=== PATIENT | male | born 1980 | race Two or more races ===

== ENCOUNTER 2021-03-23 04:51 | Inpatient (IN) | payer MEDICAID ==
[~2021-03-23] VITALS: Ht 160 cm; Wt 75.0 kg
[2021-03-23] MEDS ORDERED: LORazepam 2 mg/ml vial IM ONE ×2 (04:55→05:35)
[2021-03-23] MEDS ORDERED: morphine 4 MG/ML inj SYRINge IM ONE (04:55)
[2021-03-23] MEDS ORDERED: fentaNYL/PF 50MCG/1 ML 2ML syringe IM ONE (05:35)
--- NOTE | 2021-03-23 06:38 | NUR ---
patient received on bed-trendelenberg, per Dr. May-ok to supine patient since no hernia.Patient able to arouse with sternum rub,vital signs stable,we will monitor.
--- NOTE | 2021-03-23 06:38 | NUR ---
Patient difficuly to arouse,able to arouse using a sternum rub.Dr. Puga made aware.
[2021-03-23] MEDS ORDERED: bisacodyl 10mg suppository rectal RC PRN (07:15)
[2021-03-23] MEDS ORDERED: potassium Cl 20 mEq SR tablet PO PRN ×2 (07:15)
[2021-03-23] MEDS ORDERED: ondansetron/PF 4mg/2ml inj IV PRN (07:15)
[2021-03-23] MEDS ORDERED: magnesium 4gm in 100ml NS 100 ML IV PRN (07:15)
[2021-03-23] MEDS ORDERED: magnesium Cl slow-release 64mg tablet PO PRN (07:15)
[2021-03-23] MEDS ORDERED: acetaminophen 325mg tablet PO PRN ×2 (07:15)
[2021-03-23] MEDS ORDERED: potassium CL 10mEq/100ml bag 100 ML IV PRN (07:15)
[2021-03-23] MEDS ORDERED: HYDROcodone/acetaminophen 5mg/325mg tablet PO PRN (07:15)
[2021-03-23] MEDS ORDERED: morphine 2 MG/ML inj. syringe IV PRN ×2 (07:15)
[2021-03-23] MEDS ORDERED: acetaminophen 650mg rectal suppository RC PRN (07:15)
[2021-03-23] MEDS ORDERED: magnesium hydroxide 30ml (MOM) UD suspension PO PRN (07:15)
[2021-03-23] MEDS ORDERED: mag hydrox/Alum hydrox/simeth 30ml oral suspension PO PRN (07:15)
[2021-03-23] MEDS ORDERED: magnesium 2GM in 50ml NS 50 ML IV PRN (07:15)
--- NOTE | 2021-03-23 07:31 | NUR ---
Dr. Hurtado at [facility] [place], patient unable to consent since patient hard to arouse, unable to consent sx.
[2021-03-23] MEDS ORDERED: naloxone 2mg/2ml inj IV STA (07:35)
--- NOTE | 2021-03-23 07:37 | NUR ---
Dr. Puga at bedside, ordered narcan 0.5mg IV stat.
[2021-03-23 07:44] LABS: BASOPHILS % (AUTO) 0.3 % (0-1); EOSINOPHILS # (AUTO) 0.1 X10'3 (0-0.9); EOSINOPHILS % (AUTO) 1.4 % (0-6); HEMATOCRIT 42.5 % (42.0-52.0); HEMOGLOBIN 14.8 g/dl (14.0-17.9); LYMPHOCYTES % (AUTO) 13.5 % (21-51); MEAN CORPUSCULAR HEMOGLOBIN 31.5 PG (27.0-31.0); MEAN CORPUSCULAR HGB CONC 34.8 g/dL (33.0-36.5); MEAN CORPUSCULAR VOLUME 90.3 FL (78-98); MEAN PLATELET VOLUME 7.1 FL (7.4-10.4); MONOCYTES # (AUTO) 0.5 X10'3 (0-0.9); MONOCYTES % (AUTO) 6.6 % (2-12); NEUTROPHILS # (AUTO) 5.6 X10'3 (1.8-7.7); NEUTROPHILS % (AUTO) 78.2 % (42-75); PLATELET COUNT 264 X10'3 (140-440); RED BLOOD COUNT 4.71 X10'6 (4.70-6.10); RED CELL DISTRIBUTION WIDTH 13.2 % (11.5-14.5); WHITE BLOOD COUNT 7.2 X10'3 (4.5-11.0)
[2021-03-23] MEDS: normal saline 1000ml 1,000 ML IV SCH ×3 (07:49→20:56)
[2021-03-23 07:54] LABS: APTT 31 SECONDS (22-32)
--- NOTE | 2021-03-23 07:57 | NUR ---
no change from narcan 0.5mg,Dr. Puga aware.
[2021-03-23] MEDS: K and/or MAG REPLACEMENT MC SCH ×2 (08:00→20:00)
[2021-03-23] MEDS: docusate sod 100mg capsule PO SCH ×2 (08:00→20:53)
[2021-03-23 08:04] LABS: ALBUMIN 3.6 G/DL (3.4-5.0); ANION GAP 8 (8-16); BLOOD UREA NITROGEN 17 MG/DL (7-18); BUN/CREATININE RATIO 20.7 (5.4-32.0); CHLORIDE 105 MMOL/L (99-107); CREATININE 0.82 MG/DL (0.60-1.10); GLUCOSE 117 MG/DL (70-104); POTASSIUM 3.9 MMOL/L (3.5-5.1); SODIUM 138 MMOL/L (135-145); eGFR > 90 ML/MIN
[2021-03-23 08:28] LABS: HEMOGLOBIN A1C 5.6 % (4.5-6.2)
[2021-03-23] MEDS ORDERED: NO HOME MEDS (11:03)
[2021-03-23 15:07] LABS: URINE AMPHETAMINE SCREEN POSITIVE (Neg); URINE BARBITUATE SCREEN NEGATIVE (Neg); URINE BENZODIAZEPINES SCREEN NEGATIVE (Neg); URINE CANNABINOID SCREEN NEGATIVE (Neg); URINE COCAINE SCREEN NEGATIVE (Neg); URINE METHADONE SCREEN NEGATIVE (Neg); URINE OPIATE SCREEN POSITIVE (Neg); URINE PHENCYCLIDINE SCREEN NEGATIVE (Neg)
[2021-03-23 18:19] LABS: CLARITY,URINE CLEAR (Clear); COLOR,URINE YELLOW (Yellow); GLUCOSE, URINE NEGATIVE (Neg); KETONES,URINE NEGATIVE (Neg); LEUKOCYTE ESTERASE ,URINE NEGATIVE (Neg); NITRITES, URINE NEGATIVE (Neg); OCCULT BLOOD,URINE NEGATIVE (Neg); PROTEIN,URINE NEGATIVE (Neg); UROBILINOGEN,URINE 0.2 E.U/dL (0.2-1.0)
[2021-03-23 18:33] LABS: UA COLLECTION TYPE CLN CATCH MIDSTREAM
--- NOTE | 2021-03-23 18:45 | NUR ---
Received report from [employer]BERT Moncada. Patient to follow shortly.
--- NOTE | 2021-03-23 19:20 | NUR ---
Dr Cabrera rounding on patient. He called Dr Hurtado who stated that it was ok for patient to eat and then to be NPO at midnight.
[2021-03-23 19:30] VITALS: BP 115/86
[2021-03-23] MEDS: HYDROcodone/acetaminophen 10/325mg tab PO PRN (20:49)
[2021-03-23 23:30] VITALS: BP 133/84
[2021-03-24] MEDS: HYDROcodone/acetaminophen 10/325mg tab PO PRN (05:14)
[2021-03-24] MEDS: normal saline 1000ml 1,000 ML IV SCH (05:20)
[2021-03-24 06:30] LABS: BASOPHILS % (AUTO) 0.3 % (0-1); EOSINOPHILS # (AUTO) 0.1 X10'3 (0-0.9); EOSINOPHILS % (AUTO) 1.4 % (0-6); HEMATOCRIT 43.1 % (42.0-52.0); HEMOGLOBIN 14.6 g/dl (14.0-17.9); LYMPHOCYTES # (AUTO) 1.6 X10'3 (1.1-4.8); MEAN CORPUSCULAR HEMOGLOBIN 31.2 PG (27.0-31.0); MEAN CORPUSCULAR HGB CONC 33.8 g/dL (33.0-36.5); MEAN CORPUSCULAR VOLUME 92.2 FL (78-98); MEAN PLATELET VOLUME 7.6 FL (7.4-10.4); MONOCYTES # (AUTO) 0.5 X10'3 (0-0.9); MONOCYTES % (AUTO) 7.5 % (2-12); NEUTROPHILS # (AUTO) 4.8 X10'3 (1.8-7.7); NEUTROPHILS % (AUTO) 68.8 % (42-75); PLATELET COUNT 260 X10'3 (140-440); RED BLOOD COUNT 4.67 X10'6 (4.70-6.10); RED CELL DISTRIBUTION WIDTH 13.2 % (11.5-14.5)
--- NOTE | 2021-03-24 06:30 | NUR ---
Problems reprioritized. Patient report given, questions answered & plan of care reviewed with Shara GODINEZ.
[2021-03-24 07:32] LABS: ALANINE AMINOTRANSFERASE 30 U/L (12-78); ALBUMIN 3.2 G/DL (3.4-5.0); ALBUMIN/GLOBULIN RATIO 0.9 (1.1-1.5); ALKALINE PHOSPHATASE 55 IU/L (46-116); ANION GAP 9 (8-16); ASPARTATE AMINO TRANSFERASE 24 U/L (10-37); BILIRUBIN,TOTAL 0.4 MG/DL (0.1-1.0); BLOOD UREA NITROGEN 14 MG/DL (7-18); BUN/CREATININE RATIO 16.9 (5.4-32.0); CALCIUM 8.5 MG/DL (8.5-10.1); CHLORIDE 107 MMOL/L (99-107); CHOL/HDL RATIO 4.4 (0.00-4.99); CHOLESTEROL 161 MG/DL (0-200); CREATININE 0.83 MG/DL (0.60-1.10); GLUCOSE 89 MG/DL (70-104); HDL CHOLESTEROL 37 MG/DL (35-60); LDL CHOLESTEROL 105 MG/DL (50-100); PHOSPHORUS 3.3 MG/DL (2.3-4.5); POTASSIUM 4.1 MMOL/L (3.5-5.1); SODIUM 140 MMOL/L (135-145); TOTAL CARBON DIOXIDE 24.4 MMOL/L (24-32); TOTAL PROTEIN 6.7 G/DL (6.4-8.2); TRIGLYCERIDES 111 MG/DL (20-135); eGFR > 90 ML/MIN
[2021-03-24] MEDS: K and/or MAG REPLACEMENT MC SCH (08:00)
[2021-03-24] MEDS: docusate sod 100mg capsule PO SCH (08:00)
[2021-03-24 08:39] VITALS: BP 98/60
[2021-03-24] MEDS ORDERED: COVID-19 VACC, MRNA(PFIZER)/PF--BNT162b2 syringe IMVAC ONE (09:00)
[2021-03-24] MEDS ORDERED: CEPH250T PO (10:52)
--- NOTE | 2021-03-24 11:11 | NUR ---
pt discharged in stable condition to home at 1110. Iv removed, tip intact, no complications. Belongings sent with pt. Pt educated on d/c instructions
== END 2021-03-24 11:18 | disposition home or self-care (01) | DRG 501 ==
LOC: ER 04:52 → ED HOLD 07:18 → SUR 3N 19:00
PROVIDERS: ADMIT Family Medicine; ATTEND Family Medicine
DX: N43.3 Hydrocele, unspecified (principal); F15.10 Other stimulant abuse, uncomplicated; N50.811 Right testicular pain; Z20.822 Contact with and (suspected) exposure to COVID-19; F17.210 Nicotine dependence, cigarettes, uncomplicated; Z71.51 Drug abuse counseling and surveillance of drug abuser; Z71.6 Tobacco abuse counseling
CPT/HCPCS: 0001A; 36415; 71045; 74176; 76870; 80048; 80053; 80061; 80305; 81003; 83036; 83735; 84100; 85025; 85610; 85730; 86885; 86900; 86901; 87081; 87635; 91300; 93005; 93976; 96372; 99285; C9803; G0378; J2060; J2270; J2310; J3010; J7030

== ENCOUNTER 2021-04-03 17:34 | Emergency (ER) | payer MEDICAID ==
[~2021-04-03] VITALS: Ht 160 cm; Wt 66.8 kg
[~2021-04-03 17:34] MED LIST: CEPH250T PO
[2021-04-03 17:43] VITALS: BP 135/97
[2021-04-03] MEDS ORDERED: ketorolac trometh. 30mg/ml inj. IV ONE (19:35)
[2021-04-03] MEDS ORDERED: iohexol 300mg/ml 100ml inj. ONE (19:35)
[2021-04-03] MEDS ORDERED: acetaminophen 325mg tablet PO ONE (19:35)
[2021-04-03] MEDS ORDERED: normal saline 1000ml 1,000 ML IV ONE (19:35)
[2021-04-03 19:52] LABS: BASOPHILS % (AUTO) 0.3 % (0-1); EOSINOPHILS # (AUTO) 0.1 X10'3 (0-0.9); EOSINOPHILS % (AUTO) 0.8 % (0-6); HEMATOCRIT 43.6 % (42.0-52.0); HEMOGLOBIN 14.9 g/dl (14.0-17.9); LYMPHOCYTES # (AUTO) 1.2 X10'3 (1.1-4.8); LYMPHOCYTES % (AUTO) 18.5 % (21-51); MEAN CORPUSCULAR HEMOGLOBIN 31.1 PG (27.0-31.0); MEAN CORPUSCULAR HGB CONC 34.3 g/dL (33.0-36.5); MEAN CORPUSCULAR VOLUME 90.8 FL (78-98); MEAN PLATELET VOLUME 6.9 FL (7.4-10.4); MONOCYTES # (AUTO) 0.4 X10'3 (0-0.9); MONOCYTES % (AUTO) 5.8 % (2-12); NEUTROPHILS % (AUTO) 74.6 % (42-75); PLATELET COUNT 371 X10'3 (140-440); RED CELL DISTRIBUTION WIDTH 13.1 % (11.5-14.5); WHITE BLOOD COUNT 6.7 X10'3 (4.5-11.0)
[2021-04-03 20:07] LABS: ALANINE AMINOTRANSFERASE 31 U/L (12-78); ALBUMIN 3.9 G/DL (3.4-5.0); ALKALINE PHOSPHATASE 63 IU/L (46-116); ANION GAP 9 (8-16); ASPARTATE AMINO TRANSFERASE 24 U/L (10-37); BILIRUBIN,TOTAL 0.3 MG/DL (0.1-1.0); BLOOD UREA NITROGEN 17 MG/DL (7-18); BUN/CREATININE RATIO 18.9 (5.4-32.0); CALCIUM 8.9 MG/DL (8.5-10.1); CHLORIDE 106 MMOL/L (99-107); GLUCOSE 98 MG/DL (70-104); SODIUM 142 MMOL/L (135-145); TOTAL CARBON DIOXIDE 26.6 MMOL/L (24-32); TOTAL PROTEIN 7.8 G/DL (6.4-8.2); eGFR > 90 ML/MIN
== END 2021-04-03 21:58 | disposition home or self-care (01) ==
LOC: ER 17:34
DX: N50.811 Right testicular pain (principal); M54.50 Low back pain, unspecified; Z79.2 Long term (current) use of antibiotics
CPT/HCPCS: 36415; 74177; 76870; 80053; 83605; 85025; 93976; 96361; 96374; 99285; J1885; J7030; Q9967; 96360